=== PATIENT | female | born 1960 | race Caucasian/White ===

== ENCOUNTER 2018-10-28 11:46 | Emergency (ER) | payer OTHER ==
[2018-10-28] MEDS: SOD CHLORIDE 0.9% 1,000 ML IV (12:39)
[2018-10-28] MEDS: ONDANSETRON 4 MG INJ IV (12:39)
[2018-10-28] MEDS: DIPHENHYDRAMINE 50 MG INJ IV (12:39)
[2018-10-28] MEDS: KETOROLAC 30 MG INJ IV (12:40)
[2018-10-28 12:56] LABS: ADD UMIC YES; UR ASCORBIC ACID NEGATIVE (NEGATIVE); UR BILIRUBIN (Dip) NEGATIVE (NEGATIVE); UR BLOOD (Dip) 1+ mg/dL (NEGATIVE); UR CLARITY CLEAR (CLEAR); UR COLOR STRAW (YELLOW); UR GLUCOSE (Dip) NEGATIVE (NEGATIVE); UR KETONES (Dip) NEGATIVE (NEGATIVE); UR LEUKOCYTE ESTERASE (Dip) NEGATIVE Leu/ul (NEGATIVE); UR NITRITE (Dip) NEGATIVE (NEGATIVE); UR RBC 3 /HPF (0-5); UR TOTAL PROTEIN (Dip) NEGATIVE (NEGATIVE); UR UROBILINOGEN (Dip) NEGATIVE (NEGATIVE); UR WBC 1 /HPF (0-5)
== END 2018-10-28 14:18 | disposition home or self-care (01) ==
LOC: FTE 11:46
DX: R51 Headache (principal); I10 Essential (primary) hypertension; F17.210 Nicotine dependence, cigarettes, uncomplicated
CPT/HCPCS: 76536; 81001; 96361; 96374; 96375; 99285-25